=== PATIENT | female | born 1960 | race Caucasian/White ===

== ENCOUNTER → 2019-11-06 | Day surgery (SDC) | payer OTHER ==
[2019-11-01 17:12] LABS: BASOPHILS % 0.2 % (0.0-1.0); HEMATOCRIT 43.3 % (34.2-44.1); HEMOGLOBIN 14.2 g/dL (12.0-16.0); MEAN CORPUSCULAR HEMOGLOBIN 30.9 pg (28-32); MEAN CORPUSCULAR HGB CONC 32.8 g/dL (31-35); MEAN CORPUSCULAR VOLUME 94.1 fL (81-99); MONOCYTES # (AUTO) 0.5 (0.2-0.8); MONOCYTES % 4.7 % (4.4-11.3); NEUTROPHILS # (AUTO) 8.1 (2.1-6.9); NEUTROPHILS % 84.5 % (38.7-80.0); PLATELET COUNT 121 x10e3/uL (140-360); RED CELL DISTRIBUTION WIDTH 13.1 % (11.7-14.4)
[2019-11-01 17:27] LABS: INR 1.07; PROTHROMBIN TIME 14.5 seconds (11.9-14.5)
[2019-11-01 17:28] LABS: PARTIAL THROMBOPLASTIN TIME 25.1 seconds (23.8-35.5)
[2019-11-01 17:34] LABS: ALANINE AMINOTRANSFERASE 17 IU/L (0-55); ALBUMIN 4.1 g/dL (3.5-5.0); ALBUMIN/GLOBULIN RATIO 1.1 (0.8-2.0); ALKALINE PHOSPHATASE 97 IU/L (40-150); ANION GAP 16.6 mmol/L (8-16); BLOOD UREA NITROGEN 18 mg/dL (7-26); BUN/CREATININE RATIO 21 (6-25); CALCIUM 9.2 mg/dL (8.4-10.2); CARBON DIOXIDE 20 mmol/L (22-29); CHLORIDE 106 mmol/L (98-107); CREATININE, SERUM 0.87 mg/dL (0.57-1.11); EST GLOMERULAR FILTRATION RATE > 60 ML/MIN (60-); GLUCOSE 195 mg/dL (74-118); POTASSIUM 4.6 mmol/L (3.5-5.1); SODIUM 138 mmol/L (136-145)
[~2019-11-06] MED LIST: ALENDRONATE SOD70 MG PO; BUPIVACAINE HCL 0.5% INJ 30 ML VIAL INJ ONE; CEFAZOLIN SOD 1 GM/NS 50ML 50 ML IV ONE; DEXAMETHASONE SOD PHOS INJ 4 MG/ML VIAL ONE; FENTANYL CITRATE/PF 100MCG/2 ML INJ ONE; HYDROMORPHONE 1MG/1ML INJ ONE; LACTULOSE20 GM/30 M PO; LIDOCAINE HCL 2% LOCAL INJ 5 ML SDV VIAL INJ ONE; MEDROL4 MG PO; MIDAZOLAM HCL 2 MG/2 ML VIAL ONE; NADOLOL20 MG PO; NEOSTIGMINE 1 MG/ML 10ML VIAL ONE; ONDANSETRON HCL INJ 2MG/ML 2ML 2 MG/ML VIAL ONE; PHENYLEPHRINE HCL 1% 10 MG/ML VIAL ONE; PROPOFOL IV EMULSION 10 MG/ML 20 ML VIAL ONE; ROCURONIUM BROMIDE 10 MG/ML 5ML VIAL IV ONE; SEVOFLURANE INHAL SOLN 250 ML PEN BTL ONE; ULTRAM 50MG50 MG PO; VIT D PO; XIFAXAN550 MG PO
--- NOTE | 2019-11-06 09:48 | Operative Report ---
DATE OF PROCEDURE: 11/06/2019 SURGEON: Ramona Becker DPM PREOPERATIVE DIAGNOSES: 1. Right first metatarsal cuneiform exostosis. 2. Right medial dorsal cutaneous nerve entrapment. 3. Right retrocalcaneal exostosis. 4. Right gastroc soleus equinus. PLANNED PROCEDURE: 1. Right first metatarsal cuneiform exostectomy with external neurolysis of the medial dorsal cutaneous nerve. 2. Tendo-Achilles lengthening. 3. Retrocalcaneal exostectomy with Achilles detachment reattachment. KILN PUSHER: Ramona Becker DPM. ANESTHESIA: General with a postoperative block consisting of 20 mL of 0.5% Marcaine plain, mixed with 1 mL of dexamethasone phosphate. HEMOSTASIS: Pneumatic thigh tourniquet set at 350 mmHg for a total time of approximately 45 minutes. MATERIALS: One Arthrex Achilles SpeedBridge 2-0 Vicryl, 3-0 Vicryl, 4-0 nylon. ESTIMATED BLOOD LOSS: Less than 10 mL. PATHOLOGY: None. PROCEDURE NOTE: The patient was seen in the preoperative waiting room, where the correct procedure and site were identified. The patient was brought to the operating room and placed on operative table in supine position. General anesthesia was initiated. At this time, a well-padded pneumatic tourniquet was placed about the patient's right thigh. The right foot, ankle and leg was then scrubbed, prepped, and draped in the usual aseptic manner. The right foot, ankle and leg was exsanguinated with an Esmarch bandage and the pneumatic thigh tourniquet was inflated to 350 mmHg for a total time of approximately 15 minutes. Attention was directed to the dorsal aspect of the patient's right foot, where a large bony prominence was noted over the metatarsal cuneiform joint. Utilizing a #15 blade, a 4 cm linear incision made. The incision was carried through subcutaneous tissue them from deep or underlying structures. All vital and neurovascular structures were identified, retracted medial, laterally and all bleeders were cauterized or ligated as deemed necessary. Attention was directed down to the level of the metatarsal cuneiform joint, where a linear capsulotomy was performed to allow for good visualization of the joint. There was noted to be a dorsal osteophyte, which was excised and passed off to the back table. Next, utilizing osteotome and mallet, the exostosis was performed and the bone was removed and passed off to the back table. Next, the medial dorsal cutaneous nerve was easily identified and all adhesions were freed to allow for good visualization and steroid was injected while the nerve was visible. Next, the wound was copiously irrigated with sterile saline. The subcutaneous tissue reapproximated with 3-0 Vicryl and the skin was closed using a running interlocking stitch of 4-0 nylon. Next, a temporary dressing was performed, where the patient was flipped to the prone position. The Bovie and the thigh tourniquet were removed and then reapplied. The foot was then re-scrubbed, prepped and draped in the usual aseptic manner. The right foot, ankle, leg was then exsanguinated with an Esmarch bandage. A pneumatic thigh tourniquet was then reinflated for another 30 minutes. Attention was directed to the posterior aspect of the patient's right leg, where a 5 cm linear incision was made proximal to the Achilles tendon insertion. The incision was carried to subcutaneous tissue from deep or underling structures. All vital and neurovascular structures were identified retracted medially and laterally. All bleeders were cauterized and ligated as deemed necessary. Next, the Achilles tendon in gastroc aponeurosis was easily identified. The paratenon was incised to allow for good visualization of the Achilles tendon. Utilizing a [id number] technique, three cuts were made, two medial and lateral and 1 proximal central. The foot was then dorsiflexed and allowed for translation of the tendon. The wound was then copiously irrigated with sterile saline. Capsule and deep tissue were reapproximated with 3-0 Vicryl, subcutaneous tissue with 3-0 Vicryl. The skin was closed using simple interrupted sutures of 4-0 nylon. Attention was directed to the posterior aspect of the heel, where a 3rd linear incision made directly over the Achilles tendon into the calcaneal insertion. Incision was carried through subcutaneous tissue them from deep or underling structures. All vital and neurovascular structures were identified, retracted medially and laterally, and all bleeders were cauterized or ligated as deemed necessary. At this time, an inverted T-incision was made through the Achilles tendon down to the calcaneal bone and the tendon was reflected medially and laterally to allow for good visualization of the posterior calcaneus. There was noted to be a large bursal sac, which was excised and passed off to the back table to allow for good visualization of large bone spur. Utilizing an osteotome and mallet, a rotary bur and a hand rasp, the calcaneus was debrided to a good anatomical alignment to confirmed via intraoperative fluoroscopy. Next, utilizing manufacture protocol, the Arthrex SpeedBridge was utilized. Two proximal row bone anchors were placed and the sutures were placed to the distal aspect of the Achilles tendon, each side of the tendon was then passed through the distal row of the Achilles tendon SpeedBridge and impacted into the bone and twisted to anatomic alignment. The Achilles tendon was advanced and noted to be functioning in proper anatomic alignment. The wound was then copiously irrigated with sterile saline. Capsule and deep tissue were reapproximated with 3-0 Vicryl, subcutaneous tissue with 3-0 Vicryl. The skin was closed using running interlocking stitch with 4-0 nylon. The incision site was dressed with Adaptic, 4x4s, Kerlix, 4 x 30 posterior splint, 4-inch Ryan wrap, and a 6-inch Ryan wrap. The patient tolerated the procedure and anesthesia well. The patient was transferred to postoperative recovery unit with vital signs stable and vascular status intact. The patient was monitored for short period time before being sent home with the final written all instructions: 1. Keep the dressing clean, dry, and intact. 2. The patient is to remain nonweightbearing to the right lower extremity to avoid any ambulation until being seen in the office. 3. The patient was given the office number, instructed to contact us if any problems arise. Dictated by Ramona Becker DPM S [facility]ed[facility] (Charley)/JAIMEL /[id number]
[2019-11-06 09:50] VITALS: BP 152/99
== END | disposition home or self-care (01) ==
LOC: OR 05:13
PROVIDERS: ATTEND Podiatrist Foot & Ankle Surgery
DX: M25.774 Osteophyte, right foot (principal); M77.51 Other enthesopathy of right foot and ankle; M67.01 Short Achilles tendon (acquired), right ankle; M21.6X1 Other acquired deformities of right foot; G58.8 Other specified mononeuropathies; M77.31 Calcaneal spur, right foot; C22.9 Malignant neoplasm of liver, not specified as primary or secondary; I10 Essential (primary) hypertension; K74.60 Unspecified cirrhosis of liver; Z88.6 Allergy status to analgesic agent; Z01.810 Encounter for preprocedural cardiovascular examination; Z01.812 Encounter for preprocedural laboratory examination; Z11.59 Encounter for screening for other viral diseases
CPT/HCPCS: 27685; 28118; 28122; 36415; 64704; 80053; 85025; 85610; 85730; 93005; C1713; J0690; J1100; J1170; J2001; J2250; J2370; J2405; J2704; J3010; U0002; J2710

== ENCOUNTER → 2020-07-17 | Outpatient (CLI) | payer OTHER ==
[~2020-07-17] MED LIST changes: -BUPIVACAINE HCL 0.5% INJ 30 ML VIAL INJ ONE; -CEFAZOLIN SOD 1 GM/NS 50ML 50 ML IV ONE; -DEXAMETHASONE SOD PHOS INJ 4 MG/ML VIAL ONE; -FENTANYL CITRATE/PF 100MCG/2 ML INJ ONE; -HYDROMORPHONE 1MG/1ML INJ ONE; -LIDOCAINE HCL 2% LOCAL INJ 5 ML SDV VIAL INJ ONE; -MIDAZOLAM HCL 2 MG/2 ML VIAL ONE; -NEOSTIGMINE 1 MG/ML 10ML VIAL ONE; -ONDANSETRON HCL INJ 2MG/ML 2ML 2 MG/ML VIAL ONE; -PHENYLEPHRINE HCL 1% 10 MG/ML VIAL ONE; -PROPOFOL IV EMULSION 10 MG/ML 20 ML VIAL ONE; -ROCURONIUM BROMIDE 10 MG/ML 5ML VIAL IV ONE; -SEVOFLURANE INHAL SOLN 250 ML PEN BTL ONE
== END ==
LOC: MRI 12:39
PROVIDERS: ATTEND Podiatrist Foot & Ankle Surgery
DX: S86.011A Strain of right Achilles tendon, initial encounter (principal)

== ENCOUNTER → 2020-08-26 | Outpatient (RCR) | payer OTHER | LOC: PT 08-07 11:05 | PROVIDERS: ATTEND Podiatrist Foot & Ankle Surgery | DX: M25.571 Pain in right ankle and joints of right foot (principal); M25.471 Effusion, right ankle; M25.671 Stiffness of right ankle, not elsewhere classified; R26.2 Difficulty in walking, not elsewhere classified; M62.81 Muscle weakness (generalized) ==

== ENCOUNTER 2020-09-25 11:00 | Outpatient (RCR) | payer OTHER | END 2020-09-26 | LOC: PT 11:00 | PROVIDERS: ATTEND Podiatrist Foot & Ankle Surgery | DX: M25.571 Pain in right ankle and joints of right foot (principal); M62.81 Muscle weakness (generalized); M25.471 Effusion, right ankle; M25.671 Stiffness of right ankle, not elsewhere classified; R26.2 Difficulty in walking, not elsewhere classified | CPT/HCPCS: 97139 ==